=== PATIENT | female | born 1945 | race Caucasian/White ===

== ENCOUNTER → 2016-09-09 16:57 | Outpatient (CLI) | payer MEDICARE, MEDICAID | END | disposition home or self-care (01) | LOC: D.MAMMO 11:15 | DX: Z12.31 Encounter for screening mammogram for malignant neoplasm of breast (principal) ==

== ENCOUNTER → 2016-11-27 12:10 | Outpatient (CLI) | payer MEDICARE, MEDICAID | END | disposition home or self-care (01) | LOC: D.RAD 12:10 | DX: M54.16 Radiculopathy, lumbar region (principal) ==

== ENCOUNTER → 2017-12-08 20:15 | Outpatient (CLI) | payer MEDICARE, MEDICAID | END | disposition home or self-care (01) | LOC: D.MAMMO 11-24 14:15 | DX: Z12.31 Encounter for screening mammogram for malignant neoplasm of breast (principal) ==

== ENCOUNTER → 2018-09-27 13:36 | Outpatient (CLI) | payer MEDICARE, MEDICAID | END | disposition home or self-care (01) | LOC: D.CT 13:36 | PROVIDERS: ATTEND Internal Medicine Gastroenterology | DX: R19.7 Diarrhea, unspecified (principal); R10.9 Unspecified abdominal pain; R11.0 Nausea ==

== ENCOUNTER → 2018-09-30 08:39 | Outpatient (CLI) | payer MEDICARE, MEDICAID ==
[2018-09-30 10:13] LABS: BASOPHILS 0.4 % (0-2); EOSINOPHILS 4.8 % (0-7); HEMATOCRIT 40.9 % (36.0-48.0); HEMOGLOBIN 14.2 g/dL (12-16); IMMATURE GRANULOCYTES 0.1 % (0-5); LYMPHOCYTES 29.7 % (15-50); MCH 32.9 pg (26.0-34.0); MCHC 34.7 g/dL (31.0-37.0); MCV 94.7 fL (80.0-100.0); MEAN PLATELET VOLUME 8.7 fL (7.4-10.4); MONOCYTES 10.1 % (2-11); NEUTROPHILS 54.9 % (40-80); PLATELET COUNT 390 10x3/uL (130-400); RBC 4.32 10x6/uL (4.00-5.40); RDW 13.3 % (11.5-14.5); WBC 7.4 10x3/uL (4.8-10.8)
[2018-09-30 11:20] LABS: ERYTHROCYTE SEDIMENTATION RATE 15 mm/hr (0-30)
[2018-10-05 19:07] LABS: OVA + PARASITE EXAM Final report (())
== END | disposition home or self-care (01) ==
LOC: D.LAB 08:39
PROVIDERS: ATTEND Internal Medicine Gastroenterology
DX: K52.9 Noninfective gastroenteritis and colitis, unspecified (principal); R19.7 Diarrhea, unspecified

== ENCOUNTER → 2020-02-23 13:07 | Outpatient (CLI) | payer MEDICARE, MEDICAID | END | disposition home or self-care (01) | LOC: D.MAMMO 01-10 14:00 | PROVIDERS: ATTEND Nurse Practitioner Family | DX: Z12.31 Encounter for screening mammogram for malignant neoplasm of breast (principal) ==